=== PATIENT | female | born 1965 | race Caucasian/White ===

== ENCOUNTER 2022-03-12 22:32 | Emergency (ER) | payer OTHER ==
[2022-03-12 22:37] VITALS: RESP 18
[2022-03-12] MEDS ORDERED: CEPHALEXIN 500MG STARTER PACK 4 CAP BTL PO STA (23:06)
[2022-03-12] MEDS ORDERED: ACET/COD 300 MG/30 MG STARTER PACK 6 TAB BTL PO STA (23:06)
--- NOTE | 2022-03-12 23:08 | ED ---
General Adult HPI - General Chief complaint: Skin/Abscess/Foreign Body Stated complaint: Left arm swelling Time Seen by Provider: 03/12/22 22:42 Source: patient Mode of arrival: ambulatory Limitations: no limitations - History of Present Illness Initial comments: Dictation was produced using Rit[employer] dictation software. please excuse any grammatical, word or spelling errors. Chief Complaint: 56-year-old female presents emergency Department with left arm redness and pain History of Present Illness: Patient is a 56-year-old female she presents emergency Department with left elbow pain and redness. Patient states that 6 days prior to that she hit part of her forearm with an attachment to the vacuum. She didn't think much of it. Shortly after she started to have some swelling over the left forearm. She states that spent there for several days. She tried to come to the emergency department recently however did not want to wait she ended up left without being seen. States that the swelling is improved however does appear to be more red and just is painful. Denies any fever or constitutional symptoms. The ROS documented in this emergency department record has been reviewed and confirmed by me. Those systems with pertinent positive or negative responses have been documented in the HPI. All other systems are other negative and/or noncontributory. PHYSICAL EXAM: General Impression: Alert and oriented x3, not in acute distress HEENT: Normocephalic atraumatic, extra-ocular movements intact, pupils equal and reactive to light bilaterally, mucous membranes moist. Cardiovascular: Heart regular rate and rhythm Chest: Able to complete full sentences, no retractions, no tachypnea Abdomen: abdomen soft, non-tender, non-distended, no organomegaly Musculoskeletal: Pulses present and equal in all extremities, no peripheral edema Motor: no focal deficits noted Left upper extremity: There does appear to be some redness that is blanching there is palpatory tenderness, no puncture wounds, no drainage, clean dry and intact Neurological: CN II-XII grossly intact, no focal motor or sensory deficits noted Skin: Intact with no visualized rashes Psych: Normal affect and mood ED course: 56-year-old female presents emergency Department clinical presentation concerning for left upper extremity cellulitis. Point of care bedside ultrasound showed cobblestoning in the dermal layers. Vital signs upon arrival are within acceptable limits. Patient prescription for Keflex. She is given starter pack for Keflex and analgesics. Patient given referral to primary care doctor. - Related Data Previous Rx's Medication Instructions Recorded Ibuprofen [Motrin] 600 mg PO Q6HR PRN #20 tab 10/11/14 Cephalexin [Keflex] 500 mg PO Q6HR 5 Days #20 cap 03/12/22 Allergies Allergy/AdvReac Type Severity Reaction Status Date / Time No Known Allergies Allergy Verified 03/12/22 22:36 Review of Systems ROS Statement: Those systems with pertinent positive or pertinent negative responses have been documented in the HPI. ROS Other: All systems not noted in ROS Statement are negative. Past Medical History Past Medical History: Diabetes Mellitus, Hypertension History of Any Multi-Drug Resistant Organisms: None Reported Past Surgical History: No Surgical Hx Reported Additional Past Surgical History / Comment(s): manas do, Past Psychological History: Depression Smoking Status: Current every day smoker Past Alcohol Use History: None Reported Past Drug Use History: Marijuana General Exam Limitations: no limitations Course Vital Signs 03/12/22 22:34 Temperature 97.7 F Pulse Rate 87 Respiratory 18 Rate Blood Pressure 162/80 O2 Sat by Pulse 96 Oximetry Disposition Clinical Impression: Cellulitis Disposition: HOME SELF-CARE Condition: Good Instructions (If sedation given, give patient instructions): Cellulitis (ED) Prescriptions: Cephalexin [Keflex] 500 mg PO Q6HR 5 Days #20 cap Is patient prescribed a controlled substance at d/c from ED?: No Referrals: Primo Ballard MD [REFERRING] - 1-2 days Shorty Lewis MD [REFERRING] - 1-2 days Time of Disposition: 23:08
[2022-03-12 23:47] VITALS: BP 144/88; PULSE 75; TEMP 98.3
== END 2022-03-12 23:55 | disposition home or self-care (01) ==
LOC: EC 22:32
DX: L03.114 Cellulitis of left upper limb (principal); E11.9 Type 2 diabetes mellitus without complications; I10 Essential (primary) hypertension; F17.200 Nicotine dependence, unspecified, uncomplicated
CPT/HCPCS: 99283

== ENCOUNTER 2022-04-12 15:03 | Emergency (ER) | payer OTHER ==
[2022-04-12 15:39] VITALS: BP 131/81; PULSE 95; RESP 20; TEMP 98.6
[2022-04-12 17:39] LABS: Amorphous Sediment,Urine Rare /hpf; Appearance,Urine Cloudy (Clear); Bacteria,Urine Occasional /hpf; Bilirubin,Urine 1+ (Negative); Blood,Urine Moderate (Negative); Color,Urine Dark Yellow; Glucose,Urine (UA) 4+ (Negative); Hyaline Casts,Urine 5 /lpf (0-2); Ketones,Urine 1+ (Negative); Leukocyte Esterase,Urine Moderate (Negative); Mucus,Urine Many /hpf; Nitrite,Urine Negative (Negative); Protein,Urine 2+ (Negative); RBC,Urine 8 /hpf (0-5); Specific Gravity,Urine 1.031 (1.001-1.035); Squamous Epithelial Cell,Urine 16 /hpf (0-4); WBC,Urine 25 /hpf (0-5)
[2022-04-12] MEDS ORDERED: ACETAMINOPHEN TAB 500 MG TAB PO STA (19:30)
[2022-04-12] MEDS ORDERED: SULFAMETHOX-TMP 800-160MG 1 EACH TAB PO STA (19:30)
--- NOTE | 2022-04-12 19:32 | ED ---
Abdominal Pain HPI - General Chief Complaint: Abdominal Pain Stated Complaint: Abd pain Time Seen by Provider: 04/12/22 19:17 Source: patient, RN notes reviewed Mode of arrival: ambulatory Limitations: no limitations - History of Present Illness Initial Comments: This is [id number] female comes here complaining of right low back pain. Pain is aching and sometimes sharp in nature, exacerbated by movement, twisting, bending, lifting. Patient states she's been moving at home and believes she may have injured her back. However she states that she previously has had urinary tract infections of cellulitis. Patient denying any voiding irritation. Denies any fever or chills. No nausea or vomiting. No vaginal discharge, no hematuria. Pain does radiate into the right buttock but does not radiate elsewhere. Alleviated by rest. No headache, no fever or chills, no changes in vision or hearing, no sore throat or difficulty with speech, no neck pain, no chest pain or shortness of breath, no abdominal pain, no nausea or vomiting, no changes in urination or bowel movements, no numbness or tingling, no extremity pain, no skin rashes or lesions. Past medical, surgical, social, and family history reviewed. - Related Data Previous Rx's Medication Instructions Recorded Ibuprofen [Motrin] 600 mg PO Q6HR PRN #20 tab 10/11/14 Cephalexin [Keflex] 500 mg PO Q6HR 5 Days #20 cap 03/12/22 Acetaminophen Tab [Tylenol Tab] 500 mg PO Q6H PRN #24 tablet 04/12/22 Cyclobenzaprine [Flexeril] 10 mg PO TID PRN #20 tab 04/12/22 Ibuprofen [Motrin] 600 mg PO Q8HR PRN #30 tab 04/12/22 Sulfamethox-Tmp 800-160Mg [Bactrim 1 tab PO Q12HR #14 tab 04/12/22 DS 800-160 mg] Allergies Allergy/AdvReac Type Severity Reaction Status Date / Time No Known Allergies Allergy Verified 04/12/22 15:39 Review of Systems ROS Statement: Those systems with pertinent positive or pertinent negative responses have been documented in the HPI. ROS Other: All systems not noted in ROS Statement are negative. Past Medical History Past Medical History: Diabetes Mellitus, Hypertension History of Any Multi-Drug Resistant Organisms: None Reported Past Surgical History: No Surgical Hx Reported Additional Past Surgical History / Comment(s): manas do, Past Psychological History: Depression Smoking Status: Current every day smoker Past Alcohol Use History: None Reported Past Drug Use History: Marijuana General Exam - General Exam Comments Initial Comments: This is [id number] female comes here complaining of right low back pain. Pain is aching and sometimes sharp in nature, exacerbated by movement, twisting, bending, lifting. Patient states she's been moving at home and believes she may have injured her back. However she states that she previously has had urinary tract infections of cellulitis. Patient denying any voiding irritation. Denies any fever or chills. No nausea or vomiting. No vaginal discharge, no hematuria. Pain does radiate into the right buttock but does not radiate elsewhere. Alleviated by rest. No headache, no fever or chills, no changes in vision or hearing, no sore throat or difficulty with speech, no neck pain, no chest pain or shortness of breath, no abdominal pain, no nausea or vomiting, no changes in urination or bowel movements, no numbness or tingling, no extremity pain, no skin rashes or lesions. Past medical, surgical, social, and family history reviewed. Limitations: no limitations General appearance: alert, in no apparent distress Head exam: Present: atraumatic, normocephalic, normal inspection Eye exam: Present: normal appearance, PERRL, EOMI. Absent: scleral icterus, conjunctival injection, periorbital swelling ENT exam: Present: normal exam, mucous membranes moist Neck exam: Present: normal inspection, full ROM. Absent: tenderness, meningismus, lymphadenopathy Respiratory exam: Present: normal lung sounds bilaterally. Absent: respiratory distress, wheezes, rales, rhonchi, stridor Cardiovascular Exam: Present: regular rate, normal rhythm, normal heart sounds. Absent: systolic murmur, diastolic murmur, rubs, gallop, clicks GI/Abdominal exam: Present: soft, normal bowel sounds. Absent: distended, tenderness, guarding, rebound, rigid Extremities exam: Present: normal inspection, full ROM, normal capillary refill. Absent: tenderness, pedal edema, joint swelling, calf tenderness Back exam: Present: normal inspection, full ROM (Range of motion is full with reproducible pain in the right lumbar paraspinals), tenderness, paraspinal tenderness (Right lumbar). Absent: CVA tenderness (R), CVA tenderness (L), muscle spasm, vertebral tenderness, rash noted Neurological exam: Present: alert, oriented X3, CN II-XII intact, normal gait, reflexes normal. Absent: motor sensory deficit Psychiatric exam: Present: normal affect, normal mood Skin exam: Present: warm, dry, intact, normal color. Absent: rash Course Vital Signs 04/12/22 15:37 Temperature 98.6 F Pulse Rate 95 Respiratory 20 Rate Blood Pressure 131/81 O2 Sat by Pulse 99 Oximetry Medical Decision Making - Medical Decision Making I suspect the patient's back pain is due to musculoskeletal back pain is been moving at work. This is also reproducible with both movement and palpation in the right lumbar paraspinals. Patient's clinical picture does not fit pyelonephritis however the patient states that she previously had a urinary tract infection that started like this. Patient has no abdominal tenderness. No CVA tenderness. No fever or vomiting. I'm going to cover the patient with antibiotics as her urine was abnormal however contaminated. Told the patient to call back for urine culture results on Friday. We'll cover her with Bactrim DS until then. We'll treat for Mus[place] skeletal back pain otherwise. Patient no symptomology consistent with cauda equina syndrome. No red flags. No bowel or bladder problems otherwise. Patient was told to return to the ER for any signs or symptoms worsen. Told to return immediately if any other problems arise. All questions answered. Treatment plan discussed. Patient in agreement Every effort has been made to ensure accuracy of this dictation. However, due to the limitations of electronic medical records and dictation devices, errors in charting still occur. Sales Market Leader Dr. Yan - Lab Data Lab Results 04/12/22 Range/Units 17:17 Urine Color Dark Yellow Urine Appearance Cloudy H (Clear) Urine pH 6.0 (5.0-8.0) Ur Specific Lyle 1.031 (1.001-1.035) Urine Protein 2+ H (Negative) Urine Glucose (UA) 4+ H (Negative) Urine Ketones 1+ H (Negative) Urine Blood Moderate H (Negative) Urine Nitrite Negative (Negative) Urine Bilirubin 1+ H (Negative) Urine Urobilinogen 3.0 (<2.0) mg/dL Ur Leukocyte Esterase Moderate H (Negative) Urine RBC 8 H (0-5) /hpf Urine WBC 25 H (0-5) /hpf Ur Squamous Epith Cells 16 H (0-4) /hpf Amorphous Sediment Rare H (None) /hpf Urine Bacteria Occasional H (None) /hpf Hyaline Casts 5 H (0-2) /lpf Urine Mucus Many H (None) /hpf Disposition Clinical Impression: Urinary tract infection, Lumbar strain Disposition: HOME SELF-CARE Condition: Good Instructions (If sedation given, give patient instructions): Urinary Tract Infection in Women (ED), Low Back Strain (ED) Additional Instructions: Taking antibiotics as directed and recent urine culture is received, you can call back on Friday for the results. Follow-up with your regular physician as directed. Return to the ER immediately if any symptoms worsen, new symptoms arise, or any other problems develop. Limit lifting, bending, and twisting for the next 5-7 days. Prescriptions: Sulfamethox-Tmp 800-160Mg [Bactrim DS 800-160 mg] 1 tab PO Q12HR #14 tab Cyclobenzaprine [Flexeril] 10 mg PO TID PRN #20 tab PRN Reason: Spasms Ibuprofen [Motrin] 600 mg PO Q8HR PRN #30 tab PRN Reason: Pain Acetaminophen Tab [Tylenol Tab] 500 mg PO Q6H PRN #24 tablet PRN Reason: Pain Is patient prescribed a controlled substance at d/c from ED?: No Referrals: None,Stated [Primary Care Provider] - 1-2 days Time of Disposition: 19:32
== END 2022-04-12 19:40 | disposition home or self-care (01) ==
LOC: EC 15:03
DX: S39.012A Strain of muscle, fascia and tendon of lower back, initial encounter (principal); N39.0 Urinary tract infection, site not specified; E11.9 Type 2 diabetes mellitus without complications; I10 Essential (primary) hypertension; F17.200 Nicotine dependence, unspecified, uncomplicated; F12.90 Cannabis use, unspecified, uncomplicated; X58.XXXA Exposure to other specified factors, initial encounter
CPT/HCPCS: 81001; 87086; 99283

== ENCOUNTER 2023-03-03 12:56 | Inpatient (IN) | payer MEDICAID, OTHER ==
[2023-03-03] MEDS ORDERED: DIPH,PERTUS(ACELL)TETVAC-LF 0.5 ML VIAL IM ONE (13:09)
--- NOTE | 2023-03-03 13:11 | ED ---
General Adult HPI - General Chief complaint: Psychiatric Symptoms Stated complaint: suicidal/wrist injurys Time Seen by Provider: 03/03/23 13:01 Source: patient, RN notes reviewed Mode of arrival: ambulatory Limitations: no limitations - History of Present Illness Initial comments: Patient is a pleasant 57-year-old female presenting to the emergency Department with depression and suicidal thoughts. Patient did abrade her wrists bilaterally yesterday with a knife. Unclear last tetanus immunization. Patient does have history of depression and is not on any medications at this time. No homicidal thoughts. No alcohol or street drug use. No new physical complaints. - Related Data Home Medications Medication Instructions Recorded Confirmed DULoxetine HCL [Cymbalta] 30 mg PO BID 03/03/23 03/03/23 Famotidine [Pepcid] 20 mg PO BID 03/03/23 03/03/23 Folic Acid 1 mg PO DAILY 03/03/23 03/03/23 Linagliptin [Tradjenta] 5 mg PO DIRECTED 03/03/23 03/03/23 Nicotine 21Mg/24Hr Patch [Habitrol] 1 patch TRANSDERM DAILY 03/03/23 03/03/23 Thiamine [Vitamin B-1] 100 mg PO DAILY 03/03/23 03/03/23 glipiZIDE [Glucotrol] 5 mg PO AC-BRKFST 03/03/23 03/03/23 lisinopriL [Zestril] 10 mg PO DAILY 03/03/23 03/03/23 Allergies Allergy/AdvReac Type Severity Reaction Status Date / Time naproxen AdvReac Abdominal Verified 03/03/23 13:43 Pain Review of Systems ROS Statement: Those systems with pertinent positive or pertinent negative responses have been documented in the HPI. ROS Other: All systems not noted in ROS Statement are negative. Constitutional: Denies: fever Eyes: Denies: eye pain ENT: Denies: ear pain Cardiovascular: Denies: chest pain Gastrointestinal: Denies: abdominal pain Psychiatric: Reports: anxiety, depression, suicidal thoughts Past Medical History Past Medical History: Diabetes Mellitus, Hypertension History of Any Multi-Drug Resistant Organisms: None Reported Past Surgical History: No Surgical Hx Reported Additional Past Surgical History / Comment(s): mnaas do, Past Psychological History: Depression Smoking Status: Current every day smoker Past Alcohol Use History: None Reported Past Drug Use History: Marijuana General Exam Limitations: no limitations General appearance: alert, in no apparent distress Head exam: Present: normocephalic Eye exam: Present: normal appearance Neck exam: Present: normal inspection Respiratory exam: Present: normal lung sounds bilaterally Cardiovascular Exam: Present: regular rate, normal rhythm GI/Abdominal exam: Present: soft. Absent: tenderness Extremities exam: Present: other (Bilateral wrist abrasions) Neurological exam: Present: alert Psychiatric exam: Present: depressed, anxious Skin exam: Present: normal color Course Vital Signs 03/03/23 03/03/23 12:58 14:52 Temperature 97.8 F Pulse Rate 102 H 72 Respiratory 18 18 Rate Blood Pressure 191/105 155/88 O2 Sat by Pulse 99 98 Oximetry Medical Decision Making - Medical Decision Making Was pt. sent in by a medical professional or institution (, PA, HUMAN GEOGRAPHY INSTRUCTOR, urgent care, hospital, or long term...) When possible be specific @ -No Did you speak to anyone other than the patient for history (EMS, parent, family, police, friend...)? What history was obtained from this source @ -No Did you review nursing and triage notes (agree or disagree)? Why? @ -I reviewed and agree with nursing and triage notes Were old charts reviewed (outside hosp., previous admission, EMS record, old EKG, old radiological studies, urgent care reports/EKG's, long term records)? Report findings @ -No old charts were reviewed Differential Diagnosis (chest pain, altered mental status, abdominal pain women, abdominal pain men, vaginal bleeding, weakness, fever, dyspnea, syncope, headache, dizziness, GI bleed, back pain, seizure, CVA, palpatations, mental health, musculoskeletal)? @ -Differential Mental Health Depression, anxiety, bipolar, psychosis, schizophrenia, borderline personality, situational depression, adjustment disorder, behavioral disorder, brain tumor, malingering, substance abuse, encephalopathy, medication reaction, dementia, hypothyroidism, degenerative neurologic disorder, lupus.... This is not meant to be all-inclusive list EKG interpreted by me (3pts min.). @ -As above X-rays interpreted by me (1pt min.). @ -None done CT interpreted by me (1pt min.). @ -None done U/S interpreted by me (1pt. min.). @ -None done What testing was considered but not performed or refused? (CT, X-rays, U/S, l abs)? Why? @ -None What meds were considered but not given or refused? Why? @ -None Did you discuss the management of the patient with other professionals (professionals i.e. , PA, HUMAN GEOGRAPHY INSTRUCTOR, lab, RT, psych nurse, social work professor, theater usher, teacher, railroad police officer, dependency case manager)? Give summary @ -Case was discussed with psychiatric nurse and patient will be admitted for psychiatric care Was smoking cessation discussed for >3mins.? @ -No Was critical care preformed (if so, how long)? @ -No Were there social determinants of health that impacted care today? How? (Homelessness, low income, unemployed, alcoholism, drug addiction, transportation, low edu. Level, literacy, decrease access to med. care, assisted, rehab)? @ -No Was there de-escalation of care discussed even if they declined (Discuss DNR or withdrawal of care, Hospice)? DNR status @ -No What co-morbidities impacted this encounter? (DM, HTN, Smoking, COPD, CAD, Cancer, CVA, ARF, Chemo, Hep., AIDS, mental health diagnosis, sleep apnea, morbid obesity)? @ -None Was patient admitted / discharged? Hospital course, mention meds given and rou te, prescriptions, significant lab abnormalities, going to OR and other pertinent info. @ -Patient received Ativan. Repeat blood pressure improved. Patient will be admitted for psychiatric care. Undiagnosed new problem with uncertain prognosis? @ -No Drug Therapy requiring intensive monitoring for toxicity (Heparin, Nitro, Insulin, Cardizem)? @ -No Were any procedures done? @ -No Diagnosis/symptom? @ -Depression, suicidal ideation Acute, or Chronic, or Acute on Chronic? @ -Acute on chronic, acute Uncomplicated (without systemic symptoms) or Complicated (systemic symptoms)? @ -default Side effects of treatment? @ -No Exacerbation, Progression, or Severe Exacerbation? @ -No Poses a threat to life or bodily function? How? (Chest pain, [place], [place], pneumonia, PE, COPD, DKA, ARF, appy, cholecystitis, CVA, Diverticulitis, Homicidal, Suicidal, threat to staff... and all critical care pts) @ -Suicide poses a threat to life. - Lab Data Lab Results 03/03/23 Range/Units 14:51 POC Glucose (mg/dL) 277 H (70-110) mg/dL POC Glu Prospecting Driller Helper ID Maryam Flores Disposition Clinical Impression: Suicidal ideation, Depression Disposition: TRANSFER TO PSYCH HOSP/UNIT Is patient prescribed a controlled substance at d/c from ED?: No Referrals: None,Stated [Primary Care Provider] - 1-2 days Time of Disposition: 15:08
[2023-03-03] MEDS ORDERED: LORazepam 1 MG TAB PO STA (14:49)
[2023-03-03 14:52] LABS: Glucose,Whole Blood 277 mg/dL (70-110)
[2023-03-03] MEDS ORDERED: MAG HYDROX/AL HYDROX/SIMETH 30 ML CUP PO PRN (19:57)
[2023-03-03] MEDS ORDERED: MAGNESIUM HYDROXIDE 2,400 MG/30 ML CUP PO PRN (19:57)
[2023-03-03] MEDS ORDERED: ACETAMINOPHEN TAB 325 MG TAB PO PRN (19:57)
[2023-03-03] MEDS ORDERED: LORazepam 2 MG/ML INJ IM PRN (19:57)
[2023-03-03] MEDS: FAMOTIDINE 20 MG TAB PO SCH (21:06)
[2023-03-03] MEDS: LORazepam 1 MG TAB PO PRN (21:06)
[2023-03-03] MEDS: DULoxetine HCL 30 MG CAPSULE.DR PO SCH (21:06)
[2023-03-03 21:10] LABS: Amphetamine Screen,Urine Not Detected (NotDetected); Barbiturate Screen,Urine Not Detected (NotDetected); Benzodiazepines Screen,Urine Not Detected (NotDetected); Cocaine Screen,Urine Detected (NotDetected); Methadone Screen, Urine Not Detected (NotDetected); Opiate Screen,Urine Not Detected (NotDetected); Oxycodone Screen, Urine Not Detected (NotDetected); Phencyclidine Screen,Urine Not Detected (NotDetected); Tricyclic Antidepressant,Urine Not Detected (NotDetected); Urn Cannabinoid Scrn Detected (NotDetected)
[2023-03-04] MEDS: FOLIC ACID 1 MG TAB PO SCH (08:19)
[2023-03-04] MEDS: NICOTINE 21MG/24HR PATCH TRANSDERM SCH (08:19)
[2023-03-04] MEDS: THIAMINE 100 MG TAB PO SCH (08:19)
[2023-03-04] MEDS: FAMOTIDINE 20 MG TAB PO SCH ×2 (08:19→19:30)
[2023-03-04] MEDS: DULoxetine HCL 30 MG CAPSULE.DR PO SCH (08:19)
[2023-03-04] MEDS: lisinopriL 10 MG TAB PO SCH (08:19)
[2023-03-04] MEDS: glipiZIDE 5 MG TAB PO SCH (08:19)
[2023-03-04 08:20] LABS: Glucose,Whole Blood 242 mg/dL (70-110)
[2023-03-04 12:03] LABS: Basophils % (A) 0 %; Eosinophils # (A) 0.1 k/uL (0-0.7); Eosinophils % (A) 1 %; HCT 42.7 % (34.0-46.0); HGB 14.4 gm/dL (11.4-16.0); Lymphocytes # (A) 2.4 k/uL (1.0-4.8); Lymphocytes % (A) 30 %; MCHC 33.8 g/dL (31.0-37.0); MCV 88.7 fL (80.0-100.0); Mean Platelet Volume 6.8; Monocytes # (A) 0.3 k/uL (0-1.0); Monocytes % (A) 4 %; Neutrophils # (A) 5.1 k/uL (1.3-7.7); Neutrophils % (A) 64 %; Platelet Count 319 k/uL (150-450); RBC 4.82 m/uL (3.80-5.40)
[2023-03-04 12:14] LABS: ALT 21 U/L (4-34); AST 20 U/L (14-36); African American GFR (CKD) >90 (>60 ml/min/1.73 sqM); Albumin 4.1 g/dL (3.5-5.0); Alkaline Phosphatase 88 U/L (38-126); Anion Gap 3 mmol/L; Blood Urea Nitrogen 14 mg/dL (7-17); Calcium 9.7 mg/dL (8.4-10.2); Carbon Dioxide 35 mmol/L (22-30); Chloride 99 mmol/L (98-107); Glucose 165 mg/dL (74-99); Non-African American GFR(CKD) >90 (>60 ml/min/1.73 sqM); Potassium 3.8 mmol/L (3.5-5.1); Sodium 137 mmol/L (137-145); Total Bilirubin 0.9 mg/dL (0.2-1.3); Total Protein 7.6 g/dL (6.3-8.2)
[2023-03-04 13:01] LABS: Glucose,Whole Blood 158 mg/dL (70-110)
[2023-03-04] MEDS: LORazepam 1 MG TAB PO PRN ×2 (15:03→21:37)
[2023-03-04 16:52] LABS: LDL Cholesterol,Calculated 105.7 mg/dL (0.0-131.0)
[2023-03-04 17:52] LABS: Glucose,Whole Blood 169 mg/dL (70-110)
[2023-03-04] MEDS ORDERED: FLUoxetine HCL 10 MG CAP PO STA (19:22)
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
[2023-03-04 20:08] LABS: Glucose,Whole Blood 271 mg/dL (70-110)
[2023-03-04] MEDS ORDERED: traZODone HCL 50 MG TAB PO SCH (21:00)
--- NOTE | 2023-03-05 03:39 | P.CONS ---
History of Present Illness - Reason for Consult Consult date: 03/05/23 - History of Present Illness The patient is a 57-year-old female with a PMH of type II DM, hypertension who had presented to the emergency room with complaint of depression and suicidal ideation. The patient was admitted to the mental health unit where she was seen and evaluated accompanied by mental health unit staff. The patient reports that she has been suffering from depression with suicidal ideation "for a long time". She denied any physical complaints at the time of interview. She reports smoking less than one pack of cigarettes daily. Does report marijuana use. Denied alcohol use. Review of systems: Pertinent positives and negatives as discussed in HPI, a complete review of systems was performed and all other systems are negative. Physical examination: General: non toxic, no distress, appears older than stated age, obese Derm: no unusual rashes/lesions, no unusual ecchymoses, warm, dry Head: atraumatic, normocephalic, symmetric Eyes: EOMI, no lid lag, anicteric sclera ENT: Nose and ears atraumatic, no thrush, no pharyngeal erythema Neck: trachea midline, supple Mouth: no lip lesion, mucus membranes moist Cardiovascular: S1S2 reg, no murmur, no edema Lungs: CTA bilateral, no rhonchi, no rales , no accessory muscle use Abdominal: soft, nontender to palpation, no guarding Ext: no gross muscle atrophy, no contractures, Neuro: No gross focal neuro deficits noted Psych: Alert, oriented, appropriate affect Assessment: Chronic conditions: Type II DM, hypertension Depression and suicidal ideation Imaging: None performed Data Review: Reviewed with glucose 242, A1c 9.3 Plan: Continue with home medications: Glipizide 5 mg by mouth daily Insulin sliding scale and blood glucose monitoring Continue with home lisinopril dose Defer management of depression and suicidal ideation to the primary psychiatry service Thank you for allowing us to participate in the care of this patient. We will follow peripherally. Do not hesitate to contact us with questions. Someone can be reached from the [facility] hospitalist group at all hours of the day at [phone]. 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 Past Drug Use History: Marijuana Medications and Allergies Home Medications Medication Instructions Recorded Confirmed Type DULoxetine HCL [Cymbalta] 30 mg PO BID 03/03/23 03/03/23 History Famotidine [Pepcid] 20 mg PO BID 03/03/23 03/03/23 History Folic Acid 1 mg PO DAILY 03/03/23 03/03/23 History Linagliptin [Tradjenta] 5 mg PO DIRECTED 03/03/23 03/03/23 History Nicotine 21Mg/24Hr Patch [Habitrol] 1 patch TRANSDERM DAILY 03/03/23 03/03/23 History Thiamine [Vitamin B-1] 100 mg PO DAILY 03/03/23 03/03/23 History glipiZIDE [Glucotrol] 5 mg PO AC-BRKFST 03/03/23 03/03/23 History lisinopriL [Zestril] 10 mg PO DAILY 03/03/23 03/03/23 History Allergies Allergy/AdvReac Type Severity Reaction Status Date / Time naproxen AdvReac Abdominal Verified 03/03/23 13:43 Pain Physical Exam Vitals: Vital Signs Temp Pulse BP Pulse Ox 03/04/23 19:16 88 142/82 98 03/04/23 06:51 98.2 F 69 188/83 Results CBC & Chem 7: 03/04/23 11:39 03/04/23 11:39 Labs: Abnormal Lab Results - Last 24 Hours (Table) 03/04/23 03/04/23 03/04/23 Range/Units 08:17 11:39 11:39 Carbon Dioxide 35 H (22-30) mmol/L Glucose 165 H (74-99) mg/dL POC Glucose (mg/dL) 242 H (70-110) mg/dL Hemoglobin A1c 9.3 H (<=6.0) % 03/04/23 03/04/23 03/04/23 Range/Units 12:59 17:50 20:07 Carbon Dioxide (22-30) mmol/L Glucose (74-99) mg/dL POC Glucose (mg/dL) 158 H 169 H 271 H (70-110) mg/dL Hemoglobin A1c (<=6.0) %
[2023-03-05 08:15] LABS: Glucose,Whole Blood 198 mg/dL (70-110)
[2023-03-05] MEDS: NICOTINE 21MG/24HR PATCH TRANSDERM SCH (08:16)
[2023-03-05] MEDS: FOLIC ACID 1 MG TAB PO SCH (08:16)
[2023-03-05] MEDS: BACITRACIN OINT 1 EACH PACKET TOPICAL SCH ×2 (08:16→20:52)
[2023-03-05] MEDS: FLUoxetine HCL 20 MG CAP PO SCH (08:16)
[2023-03-05] MEDS: FAMOTIDINE 20 MG TAB PO SCH ×2 (08:17→20:47)
[2023-03-05] MEDS: glipiZIDE 5 MG TAB PO SCH (08:17)
[2023-03-05] MEDS: THIAMINE 100 MG TAB PO SCH (08:17)
[2023-03-05] MEDS: lisinopriL 10 MG TAB PO SCH (08:17)
[2023-03-05] MEDS: INSULIN ASPART (NovoLOG) 100 UNIT/ML VIAL SQ SCH ×4 (08:18→20:50)
[2023-03-05 12:49] LABS: Glucose,Whole Blood 267 mg/dL (70-110)
[2023-03-05] MEDS: LITHIUM CARBONATE 150 MG CAP PO SCH ×2 (14:59→20:47)
[2023-03-05] MEDS: LORazepam 1 MG TAB PO PRN ×2 (15:01→20:49)
[2023-03-05 17:36] LABS: Glucose,Whole Blood 126 mg/dL (70-110)
[2023-03-05 20:22] LABS: Glucose,Whole Blood 254 mg/dL (70-110)
[2023-03-05] MEDS: traZODone HCL 100 MG TAB PO SCH (20:47)
[2023-03-05] MEDS: INSULIN DETEMIR (LEVEMIR) 100 UNIT/ML SYR SQ SCH (20:50)
[2023-03-06 07:58] LABS: Glucose,Whole Blood 160 mg/dL (70-110)
[2023-03-06] MEDS: glipiZIDE 5 MG TAB PO SCH (07:58)
[2023-03-06] MEDS: NICOTINE 21MG/24HR PATCH TRANSDERM SCH (07:58)
[2023-03-06] MEDS: FLUoxetine HCL 20 MG CAP PO SCH (07:59)
[2023-03-06] MEDS: LITHIUM CARBONATE 150 MG CAP PO SCH ×2 (07:59→20:56)
[2023-03-06] MEDS: lisinopriL 10 MG TAB PO SCH (07:59)
[2023-03-06] MEDS: INSULIN ASPART (NovoLOG) 100 UNIT/ML VIAL SQ SCH ×4 (07:59→21:03)
[2023-03-06] MEDS: FOLIC ACID 1 MG TAB PO SCH (07:59)
[2023-03-06] MEDS: BACITRACIN OINT 1 EACH PACKET TOPICAL SCH ×2 (07:59→20:54)
[2023-03-06] MEDS: FAMOTIDINE 20 MG TAB PO SCH ×2 (07:59→20:51)
[2023-03-06] MEDS: THIAMINE 100 MG TAB PO SCH (07:59)
[2023-03-06] MEDS: LORazepam 1 MG TAB PO PRN ×3 (08:59→20:54)
--- NOTE | 2023-03-06 09:45 | P.PN ---
Subjective Progress Note Date: 03/06/23 Principal diagnosis: IMPRESSIONS: Major depressive disorder, recurrent, severe without psychotic features Cannabis use disorder Patient Name: Rochelle Chen Date of : 1965 Patient Status: Inpatient Subjective data: admits that she has been hospitalized for making a suicide attempt and that she was trying to cut her wrists Patient states that she had an issue with her roommate and that they were having trouble getting along She says that she had been prescribed medications by her PCP but has never had any formal psychiatric follow-up and treatment She says that she is truly with her mother was a travel registered nurse pacu for her until about 4 years ago until she She reports that she still feels quite depressed and sees no reason to continue going on She denies any actual suicidal plan at this time At this time patient denies any auditory or visual hallucinations. Patient denies any flight of ideas, racing thoughts and increased in goal directed behavior. Patient admits to using marijuana about 4-5 times per week; reports this helps her anxiety and sleep. She drinks alcohol a couple times a month, about 6-7 drinks. She denies any other illicit drug use. She is smoking 1 ppd, has tried to quit recently but was unsuccessful. UDS is positive for marijuana and cocaine. Patient admits she also did cocaine one time last Friday; reports this is the first time she has done it in years. MENTAL STATUS EXAM: General Appearance: Patient appears to be stated age. Patient was laying in bed when seen She is disheveled, has multiple tattoos on her arms, wrists are bandaged, wearing multiple single rings. Patient appears to have poor hygiene and grooming. Speech: Patient's speech is fluent and non-pressured; soft tone. Mood/Affect: Patient reports their mood is depressed, affect is congruent and constricted. Suicidality/Homicidality: Patient denies having any homicidal ideation intent or plan. Patient reports suicidal ideation still; she is s/p suicide attempt by cutting wrists. Perceptions: Patient denies any visual hallucinations and denies any auditory ortega llucinations. Though content/process: There is no evidence of any delusional thought content and thought process is linear and goal-directed. Memory and concentration: AOX3, grossly intact for the purposes of this session. Judgment and insight: poor, fair IMPRESSIONS: Major depressive disorder, recurrent, severe without psychotic features Rule out personality disorder with cluster B traits Cannabis use disorder Cocaine use disorder unspecified PLAN: Agree with treatment plan by : -Patient is admitted under voluntary status to MHU for stabilization of psychiatric symptoms and safety. Patient has signed adult voluntary form and medication consent and is placed in patient's chart. -Medications: Discontinue Cymbalta due to elevated blood pressure. Start Trazodone 50 mg QHS for sleep Start Prozac 10 mg x 1 today, and increase to 20 mg daily starting tomorrow morning for depression/anxiety. -Ativan and Haldol PRN for agitation/aggression -Discussed abstaining from mood altering substances, effects on her health. -Patient was informed of the risks, benefits and side effects of the medication and patient verbally consented to taking the medications. Patient signed med consent form and was placed in chart. -Internal Medicine consult to perform medical evaluation and physical. -NRT - nicotine patch -SW on board for discharge planning. Encourage patient to participate in groups to work on coping skills. Talha Eid M.D. Objective - Vital Signs Vital signs: Vital Signs Temp 97.6 F 03/06/23 08:00 Pulse 86 03/06/23 08:00 Resp 20 03/06/23 08:00 BP 123/74 03/06/23 08:00 Pulse Ox 98 03/04/23 19:16 FiO2 Intake & Output 03/05/23 03/06/23 03/06/23 18:59 06:59 18:59 Weight 89.993 kg - Labs CBC & Chem 7: 03/04/23 11:39 03/04/23 11:39 Labs: Abnormal Lab Results - Last 24 Hours (Table) 03/05/23 03/05/23 03/05/23 Range/Units 12:46 17:33 20:20 POC Glucose (mg/dL) 267 H 126 H 254 H (70-110) mg/dL 03/06/23 Range/Units 07:57 POC Glucose (mg/dL) 160 H (70-110) mg/dL
[2023-03-06 12:45] LABS: Glucose,Whole Blood 163 mg/dL (70-110)
[2023-03-06 17:43] LABS: Glucose,Whole Blood 147 mg/dL (70-110)
[2023-03-06] MEDS: traZODone HCL 100 MG TAB PO SCH (20:51)
[2023-03-06] MEDS: INSULIN DETEMIR (LEVEMIR) 100 UNIT/ML SYR SQ SCH (21:02)
[2023-03-06 21:12] LABS: Glucose,Whole Blood 217 mg/dL (70-110)
[2023-03-07 08:16] LABS: Glucose,Whole Blood 217 mg/dL (70-110)
[2023-03-07] MEDS: INSULIN ASPART (NovoLOG) 100 UNIT/ML VIAL SQ SCH ×4 (08:52→20:00)
[2023-03-07] MEDS: THIAMINE 100 MG TAB PO SCH (08:52)
[2023-03-07] MEDS: LITHIUM CARBONATE 150 MG CAP PO SCH ×2 (08:52→20:58)
[2023-03-07] MEDS: FOLIC ACID 1 MG TAB PO SCH (08:52)
[2023-03-07] MEDS: lisinopriL 10 MG TAB PO SCH (08:52)
[2023-03-07] MEDS: BACITRACIN OINT 1 EACH PACKET TOPICAL SCH ×2 (08:52→20:59)
[2023-03-07] MEDS: FAMOTIDINE 20 MG TAB PO SCH ×2 (08:52→20:58)
[2023-03-07] MEDS: FLUoxetine HCL 20 MG CAP PO SCH (08:52)
[2023-03-07] MEDS: glipiZIDE 5 MG TAB PO SCH (08:53)
[2023-03-07] MEDS: LORazepam 1 MG TAB PO PRN ×2 (08:56→16:16)
[2023-03-07] MEDS: NICOTINE 21MG/24HR PATCH TRANSDERM SCH (08:59)
[2023-03-07] MEDS ORDERED: FLUoxetine HCL 20 MG CAP PO STA (11:14)
--- NOTE | 2023-03-07 11:16 | P.PN ---
Progress Note - Text Progress Note Date: 03/05/23 Interval History: Patient was seen [wandering the hallways] and was directable and agreeable to speak with headline writer in the office. []. At this time patient denies any suicidal or homical ideations, intent or plan. Patient denies any auditory, visual hallucinations and denies any paranoia or delusions. Patient denies any side effects from the medications and has been compliant with meds. Mental Status Exam: General Appearance: Patient appears to be stated age. She is disheveled, has multiple tattoos on her arms, wrists are bandaged, wearing multiple single rings. Patient appears to have poor hygiene and grooming. Behavior: Patient is seated without any agitated behavior. Speech: Patient's speech is fluent and non-pressured; soft tone. Mood/Affect: Patient reports their mood is depressed, affect is congruent and constricted. Suicidality/Homicidality: Patient denies having any homicidal ideation intent or plan. Patient reports suicidal ideation still; she is s/p suicide attempt by cutting wrists. Perceptions: Patient denies any visual hallucinations and denies any auditory hallucinations. Though content/process: There is no evidence of any delusional thought content and thought process is linear and goal-directed. Memory and concentration: AOX3, grossly intact for the purposes of this session Judgment and insight: poor, fair IMPRESSIONS: Major depressive disorder, recurrent, severe without psychotic features Cannabis use disorder PLAN: -Patient is admitted under voluntary status to MHU for stabilization of psychiatric symptoms and safety. Patient has signed adult voluntary form and medication consent and is placed in patient's chart. -Medications: Discontinue Cymbalta due to elevated blood pressure. Trazodone 50 mg QHS for sleep Start Prozac 10 mg x 1 today, and increase to 20 mg daily starting tomorrow morning for depression/anxiety. -Ativan and Haldol PRN for agitation/aggression -NRT - nicotine patch -SW on board for discharge planning. Encourage patient to participate in groups to work on coping skills.
--- NOTE | 2023-03-07 11:20 | P.PN ---
Progress Note - Text Progress Note Date: 03/07/23 Interval History: Patient was seen today in her room and was agreeable to speak to typewriter repairer in her room today. She states that she has a chronic history of migraines and has been aggravated by the bright lights. She states that she has been preferring to stay in her room. Claims she has been sleeping on and off at nighttime. She claims that she is tolerating the Prozac well and wants the medication increased. She states that she continues to have suicidal thoughts of wanting to be with her mother. Continues to have a depressed affect and fairly concrete. She states that her appetite is fair at this time. At this time patient denies any homical ideations, intent or plan. Patient denies any auditory, visual hallucinations and denies any paranoia or delusions. Patient denies any side effects from the medications and has been compliant with meds. Mental Status Exam: General Appearance: Patient appears to be stated age. She is disheveled, has multiple tattoos on her arms, wrists are bandaged, wearing multiple single rings. Patient appears to have poor hygiene and grooming. Behavior: Patient is experiencing in her bed, appears depressed. Speech: Patient's speech is fluent and non-pressured Mood/Affect: Patient reports their mood is depressed, affect is congruent and constricted. Suicidality/Homicidality: Patient denies having any homicidal ideation intent or plan. Patient continues to report suicidal thoughts, no intent or plan. Perceptions: Patient denies any visual hallucinations and denies any auditory hallucinations. Though content/process: There is no evidence of any delusional thought content and thought process is linear and goal-directed. [place]. Focused on headache. Memory and concentration: AOX3, grossly intact for the purposes of this session Judgment and insight: Improving mildly. IMPRESSIONS: Major depressive disorder, recurrent, severe without psychotic features Cannabis use disorder PLAN: -Patient is admitted under voluntary status to MHU for stabilization of psychiatric symptoms and safety. Patient has signed adult voluntary form and medication consent and is placed in patient's chart. -Medications: Increase Trazodone 100 mg QHS for sleep/mood, increase Prozac 40 mg, and eval for increase over the weekend as tolerated for depression/anxiety. continue with lithium 150 mg bid for mood stabilization/SI. -Ativan and Haldol PRN for agitation/aggression -NRT - nicotine patch -SW on board for discharge planning. Encourage patient to participate in groups to work on coping skills.
[2023-03-07 12:54] LABS: Glucose,Whole Blood 99 mg/dL (70-110)
[2023-03-07] MEDS: ACETAMINOPHEN TAB 500 MG TAB PO PRN (14:10)
[2023-03-07 17:54] LABS: Glucose,Whole Blood 112 mg/dL (70-110)
[2023-03-07 19:49] LABS: Glucose,Whole Blood 212 mg/dL (70-110)
[2023-03-07] MEDS: traZODone HCL 100 MG TAB PO SCH (20:58)
[2023-03-07] MEDS: INSULIN DETEMIR (LEVEMIR) 100 UNIT/ML SYR SQ SCH (20:58)
[2023-03-08 08:14] LABS: Glucose,Whole Blood 145 mg/dL (70-110)
[2023-03-08] MEDS: INSULIN ASPART (NovoLOG) 100 UNIT/ML VIAL SQ SCH ×4 (08:25→20:07)
[2023-03-08] MEDS: FAMOTIDINE 20 MG TAB PO SCH ×2 (08:51→20:08)
[2023-03-08] MEDS: THIAMINE 100 MG TAB PO SCH (08:51)
[2023-03-08] MEDS: lisinopriL 10 MG TAB PO SCH (08:51)
[2023-03-08] MEDS: FOLIC ACID 1 MG TAB PO SCH (08:51)
[2023-03-08] MEDS: glipiZIDE 5 MG TAB PO SCH (08:51)
[2023-03-08] MEDS: LITHIUM CARBONATE 150 MG CAP PO SCH ×2 (08:51→20:08)
[2023-03-08] MEDS: BACITRACIN OINT 1 EACH PACKET TOPICAL SCH ×2 (08:52→20:09)
[2023-03-08] MEDS: FLUoxetine HCL 20 MG CAP PO SCH (08:52)
[2023-03-08] MEDS: LORazepam 1 MG TAB PO PRN ×2 (08:54→17:08)
[2023-03-08] MEDS: NICOTINE 21MG/24HR PATCH TRANSDERM SCH (09:20)
--- NOTE | 2023-03-08 10:16 | P.PN ---
Subjective Progress Note Date: 03/08/23 Principal diagnosis: IMPRESSIONS: Major depressive disorder, recurrent, severe without psychotic features Cannabis use disorder Patient Name: Rochlele Chen Date of : 1965 Patient Status: Inpatient Date seen 03/07/23 Subjective data: The patient reports that she just wants to be with her mom She states that she has talked to God and that she has been guaranteed that she'll be reunited I asked if her mom would want that for her, patient reports that she probably will not but that is what she wants She states that she does not see any reason to continue and wants to be reunited with her mother She did not express any suicidal plans . MENTAL STATUS EXAM: General Appearance: Patient appears to be stated age. Patient was seen while walking down the hallway She is disheveled, has multiple tattoos on her arms, patient has a shirt on from [employer] girlfriend logo on the front wrists are bandaged, wearing multiple single rings. Patient appears to have poor hygiene and grooming. Speech: Patient's speech is fluent and non-pressured; soft tone. Mood/Affect: Patient reports their mood is depressed, affect is congruent and constricted. Suicidality/Homicidality: Patient denies having any homicidal ideation intent or plan. Patient reports suicidal ideation still; she is s/p suicide attempt by cutting wrists. Perceptions: Patient denies any visual hallucinations and denies any auditory hallucinations. Though content/process: There is no evidence of any delusional thought content and thought process is linear and goal-directed. Memory and concentration: AOX3, grossly intact for the purposes of this session. Judgment and insight: poor, fair IMPRESSIONS: Major depressive disorder, recurrent, severe without psychotic features Rule out personality disorder with cluster B traits Cannabis use disorder Cocaine use disorder unspecified PLAN: Agree with treatment plan by : -Patient is admitted under voluntary status to [facility] for stabilization of psychiatric symptoms and safety. Patient has signed adult voluntary form and medication consent and is placed in patient's chart. -Medications: Discontinue Cymbalta due to elevated blood pressure. Start Trazodone 50 mg QHS for sleep Start Prozac 10 mg x 1 today, and increase to 20 mg daily starting tomorrow morning for depression/anxiety. -Ativan and Haldol PRN for agitation/aggression -Discussed abstaining from mood altering substances, effects on her health. -Patient was informed of the risks, benefits and side effects of the medication and patient verbally consented to taking the medications. Patient signed med consent form and was placed in chart. -Internal Medicine consult to perform medical evaluation and physical. -NRT - nicotine patch -SW on board for discharge planning. Encourage patient to participate in groups to work on coping skills. Continue supportive care and redirection May benefit from pastoral services? Talha Eid M.D. Objective - Vital Signs Vital signs: Vital Signs Temp 97.9 F 03/07/23 06:30 Pulse 71 03/07/23 06:30 Resp 20 03/06/23 08:00 BP 151/84 03/07/23 06:30 Pulse Ox 98 03/04/23 19:16 FiO2 - Labs CBC & Chem 7: 03/04/23 11:39 03/04/23 11:39 Labs: Abnormal Lab Results - Last 24 Hours (Table) 03/07/23 03/07/23 03/08/23 Range/Units 17:53 19:47 08:13 POC Glucose (mg/dL) 112 H 212 H 145 H (70-110) mg/dL
[2023-03-08 12:40] LABS: Glucose,Whole Blood 142 mg/dL (70-110)
[2023-03-08] MEDS: ACETAMINOPHEN TAB 500 MG TAB PO PRN (16:20)
[2023-03-08 17:39] LABS: Glucose,Whole Blood 153 mg/dL (70-110)
[2023-03-08 20:02] LABS: Glucose,Whole Blood 188 mg/dL (70-110)
[2023-03-08] MEDS: INSULIN DETEMIR (LEVEMIR) 100 UNIT/ML SYR SQ SCH (20:08)
[2023-03-08] MEDS: traZODone HCL 100 MG TAB PO SCH (20:08)
[2023-03-09] MEDS: LORazepam 1 MG TAB PO PRN ×2 (02:27→14:39)
[2023-03-09 07:48] LABS: Glucose,Whole Blood 184 mg/dL (70-110)
[2023-03-09] MEDS: NICOTINE 21MG/24HR PATCH TRANSDERM SCH (08:35)
[2023-03-09] MEDS: INSULIN ASPART (NovoLOG) 100 UNIT/ML VIAL SQ SCH ×4 (08:35→19:59)
[2023-03-09] MEDS: BACITRACIN OINT 1 EACH PACKET TOPICAL SCH ×2 (08:36→21:07)
[2023-03-09] MEDS: lisinopriL 10 MG TAB PO SCH (08:36)
[2023-03-09] MEDS: LITHIUM CARBONATE 150 MG CAP PO SCH ×2 (08:36→20:44)
[2023-03-09] MEDS: FOLIC ACID 1 MG TAB PO SCH (08:37)
[2023-03-09] MEDS: THIAMINE 100 MG TAB PO SCH (08:37)
[2023-03-09] MEDS: FAMOTIDINE 20 MG TAB PO SCH ×2 (08:37→20:44)
[2023-03-09] MEDS: glipiZIDE 5 MG TAB PO SCH (08:37)
[2023-03-09] MEDS: FLUoxetine HCL 20 MG CAP PO SCH (08:37)
--- NOTE | 2023-03-09 09:23 | P.PN ---
Subjective Progress Note Date: 03/09/23 Principal diagnosis: IMPRESSIONS: Major depressive disorder, recurrent, severe without psychotic features Cannabis use disorder Patient Name: Rochelle Chen Date of : 1965 Patient Status: Inpatient Date seen Subjective data: The patient reports that she had a rough day yesterday and that she continues to be preoccupied with wanting to be with her mother She says that she is also been thinking about her children and grandchildren and the problems that she will create and has started to have some doubts When asked if she would be willing to see a pastoral care patient reports that she might do that Nursing staff however reports that we do not have the pastoral care services at this time Patient is free to contact her own pasture if she wants to do so Patient was laying in bed at this time appears to be in no acute distress Patient stated that her sleep remains somewhat erratic in that she is open to taking the trazodone at a higher dose MENTAL STATUS EXAM: General Appearance: Patient appears to be stated age. Patient was seen while walking down the hallway She is disheveled, has multiple tattoos on her arms, patient has a shirt on from [employer] girlfriend logo on the front wrists are bandaged, wearing multiple single rings. Patient appears to have poor hygiene and grooming. Speech: Patient's speech is fluent and non-pressured; soft tone. Mood/Affect: Patient reports their mood is depressed, affect is congruent and constricted. Suicidality/Homicidality: Patient denies having any homicidal ideation intent or plan. Patient reports suicidal ideation still; she is s/p suicide attempt by cutting wrists. Perceptions: Patient denies any visual hallucinations and denies any auditory hallucinations. Though content/process: There is no evidence of any delusional thought content and thought process is linear and goal-directed. Memory and concentration: AOX3, grossly intact for the purposes of this session. Judgment and insight: poor, fair IMPRESSIONS: Major depressive disorder, recurrent, severe without psychotic features Rule out personality disorder with cluster B traits Cannabis use disorder Cocaine use disorder unspecified PLAN: Agree with treatment plan by : -Patient is admitted under voluntary status to [facility] for stabilization of p sychiatric symptoms and safety. Patient has signed adult voluntary form and medication consent and is placed in patient's chart. -Medications: Discontinue Cymbalta due to elevated blood pressure. Start Trazodone 50 mg QHS for sleep Start Prozac 10 mg x 1 today, and increase to 20 mg daily starting tomorrow morning for depression/anxiety. -Ativan and Haldol PRN for agitation/aggression -Discussed abstaining from mood altering substances, effects on her health. -Patient was informed of the risks, benefits and side effects of the medication and patient verbally consented to taking the medications. Patient signed med consent form and was placed in chart. -Internal Medicine consult to perform medical evaluation and physical. -NRT - nicotine patch -SW on board for discharge planning. Encourage patient to participate in groups to work on coping skills. Continue supportive care and redirection May benefit from pastoral services? Talha Eid M.D. Objective - Vital Signs Vital signs: Vital Signs Temp 96.1 F L 03/09/23 07:00 Pulse 63 03/09/23 07:00 Resp 16 03/09/23 07:00 BP 158/72 03/09/23 07:00 Pulse Ox 97 03/09/23 07:00 FiO2 - Labs CBC & Chem 7: 03/04/23 11:39 03/04/23 11:39 Labs: Abnormal Lab Results - Last 24 Hours (Table) 03/08/23 03/08/23 03/08/23 Range/Units 12:39 17:38 20:01 POC Glucose (mg/dL) 142 H 153 H 188 H (70-110) mg/dL 03/09/23 Range/Units 07:47 POC Glucose (mg/dL) 184 H (70-110) mg/dL
[2023-03-09 12:31] LABS: Glucose,Whole Blood 158 mg/dL (70-110)
[2023-03-09 17:33] LABS: Glucose,Whole Blood 115 mg/dL (70-110)
[2023-03-09 19:50] LABS: Glucose,Whole Blood 256 mg/dL (70-110)
[2023-03-09] MEDS: INSULIN DETEMIR (LEVEMIR) 100 UNIT/ML SYR SQ SCH (20:44)
[2023-03-09] MEDS ORDERED: traZODone HCL 100 MG TAB PO SCH (21:00)
[2023-03-09] MEDS: ACETAMINOPHEN TAB 500 MG TAB PO PRN (23:11)
[2023-03-10 07:47] LABS: Glucose,Whole Blood 157 mg/dL (70-110)
[2023-03-10] MEDS: INSULIN ASPART (NovoLOG) 100 UNIT/ML VIAL SQ SCH ×4 (08:27→21:03)
[2023-03-10] MEDS: BACITRACIN OINT 1 EACH PACKET TOPICAL SCH ×2 (08:28→21:03)
[2023-03-10] MEDS: FAMOTIDINE 20 MG TAB PO SCH ×2 (08:28→21:03)
[2023-03-10] MEDS: NICOTINE 21MG/24HR PATCH TRANSDERM SCH (08:28)
[2023-03-10] MEDS: glipiZIDE 5 MG TAB PO SCH (08:28)
[2023-03-10] MEDS: LITHIUM CARBONATE 150 MG CAP PO SCH (08:29)
[2023-03-10] MEDS: FLUoxetine HCL 20 MG CAP PO SCH (08:29)
[2023-03-10] MEDS: FOLIC ACID 1 MG TAB PO SCH (08:29)
[2023-03-10] MEDS: lisinopriL 10 MG TAB PO SCH (08:29)
[2023-03-10] MEDS: THIAMINE 100 MG TAB PO SCH (08:29)
[2023-03-10] MEDS: LORazepam 1 MG TAB PO PRN ×2 (08:34→19:10)
--- NOTE | 2023-03-10 11:42 | P.PN ---
Progress Note - Text Progress Note Date: 03/10/23 Interval History: Patient was seen today in her room and was agreeable to speak to screen writer in the office today. patient states that she is still "about the same" and continues to endorse depression and suicidal thoughts, no plan. 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 She states that she continues to want to "be with my mom" and states that she misses her dog. She claims that she did not have a good intera ction with the covering physician over the weekend. She states that she does not want to feel like this and continues to feel hopeless. We spoke about changing her medications which she is okay with trying. States that she had a difficult time sleeping last night with the trazodone and wants also had this replaced. She states that her appetite is fair at this time. At this time patient denies any homical ideations, intent or plan. Patient denies any auditory, visual hallucinations and denies any paranoia or delusions. Patient denies any side effects from the medications and has been compliant with meds. Mental Status Exam: General Appearance: Patient appears to be stated age. She is disheveled, has multiple tattoos on her arms, wrists are bandaged, wearing multiple single rings. Patient appears to have improving hygiene and grooming. Behavior: Patient is experiencing in her bed, appears depressed, improving mildly Speech: Patient's speech is fluent and non-pressured Mood/Affect: Patient reports their mood is depressed, affect is congruent and constricted. Suicidality/Homicidality: Patient denies having any homicidal ideation intent or plan. Patient continues to report suicidal thoughts, no intent or plan. Perceptions: Patient denies any visual hallucinations and denies any auditory hallucinations. Though content/process: There is no evidence of any delusional thought content and thought process is linear and goal-directed. [place]. Memory and concentration: AOX3, grossly intact for the purposes of this session Judgment and insight: Improving mildly. IMPRESSIONS: Major depressive disorder, recurrent, severe without psychotic features Cannabis use disorder PLAN: -Patient is admitted under voluntary status to [facility] for stabilization of psychiatric symptoms and safety. Patient has signed adult voluntary form and medication consent and is placed in patient's chart. -Medications: d/c Trazodone replace with doxepin 10 mg qhs for insomnia, discontinue Prozac replace with effexor xr 37.5 mg, increase lithium 300 mg bid for mood stabilization/SI. -Ativan and Haldol PRN for agitation/aggression -NRT - nicotine patch -SW on board for discharge planning. Encourage patient to participate in groups to work on coping skills.
[2023-03-10] MEDS: VENLAFAXINE HCL ER 37.5 MG CAP PO SCH (12:28)
[2023-03-10 12:46] LABS: Glucose,Whole Blood 101 mg/dL (70-110)
[2023-03-10] MEDS: ACETAMINOPHEN TAB 500 MG TAB PO PRN ×2 (13:48→21:05)
[2023-03-10 17:59] LABS: Glucose,Whole Blood 154 mg/dL (70-110)
[2023-03-10 19:56] LABS: Glucose,Whole Blood 168 mg/dL (70-110)
[2023-03-10] MEDS ORDERED: ARIPiprazole 2 MG TAB PO SCH (21:00)
[2023-03-10] MEDS: LITHIUM CARBONATE 300 MG CAP PO SCH (21:03)
[2023-03-10] MEDS: INSULIN DETEMIR (LEVEMIR) 100 UNIT/ML SYR SQ SCH (21:03)
[2023-03-10] MEDS: DOXEPIN 10 MG CAP PO SCH (21:03)
[2023-03-11 07:53] LABS: Glucose,Whole Blood 112 mg/dL (70-110)
[2023-03-11] MEDS: INSULIN ASPART (NovoLOG) 100 UNIT/ML VIAL SQ SCH ×4 (07:54→20:10)
[2023-03-11] MEDS: LITHIUM CARBONATE 300 MG CAP PO SCH (08:41)
[2023-03-11] MEDS: FOLIC ACID 1 MG TAB PO SCH (08:41)
[2023-03-11] MEDS: lisinopriL 10 MG TAB PO SCH (08:41)
[2023-03-11] MEDS: THIAMINE 100 MG TAB PO SCH (08:41)
[2023-03-11] MEDS: NICOTINE 21MG/24HR PATCH TRANSDERM SCH (08:41)
[2023-03-11] MEDS: VENLAFAXINE HCL ER 37.5 MG CAP PO SCH (08:41)
[2023-03-11] MEDS: glipiZIDE 5 MG TAB PO SCH (08:41)
[2023-03-11] MEDS: FAMOTIDINE 20 MG TAB PO SCH ×2 (08:41→20:52)
[2023-03-11] MEDS: LORazepam 1 MG TAB PO PRN ×2 (10:30→20:54)
[2023-03-11 11:32] VITALS: BMI 33.8
[2023-03-11 13:06] LABS: Glucose,Whole Blood 83 mg/dL (70-110)
[2023-03-11] MEDS: BACITRACIN OINT 1 EACH PACKET TOPICAL SCH ×2 (13:09→20:52)
--- NOTE | 2023-03-11 14:02 | P.PN ---
Progress Note - Text Progress Note Date: 03/11/23 Interval History: Patient was seen today wandering the hallways sports writer in the office today. nasim ent states that she is still feeling fairly depressed. She was fairly somatic today complaining of possible neuropathic pain in her arm. She claims that she used to be on Neurontin. She states that she also has been having fairly dry eyes. He spoke about different treatment options. She claims that she slept fairly well with the doxepin last night. She states that it was difficult for her to wake up this morning. She claims that she is having a tremor when she is trying to write things on paper however does not know which medication may be causing it and states it started yesterday. She claims that she continues to feel hopeless continues have suicidal thoughts however no plan or intent. Has been trying to go to groups. She states that her appetite is fair at this time. At this time patient denies any homical ideations, intent or plan. Patient denies any auditory, visual hallucinations and denies any paranoia or delusions. Patient denies any side effects from the medications and has been compliant with meds. Mental Status Exam: General Appearance: Patient appears to be stated age. She is disheveled, has multiple tattoos on her arms, wrists are bandaged, wearing multiple single rings. Patient appears to have improving hygiene and grooming. Behavior: Patient is sitting in chair, no agitation, appears less depressed, improving mildly Speech: Patient's speech is fluent and non-pressured Mood/Affect: Patient reports their mood is depressed, affect is congruent and improving mildly Suicidality/Homicidality: Patient denies having any homicidal ideation intent or plan. Patient continues to report suicidal thoughts, no intent or plan. Perceptions: Patient denies any visual hallucinations and denies any auditory hallucinations. Though content/process: There is no evidence of any delusional thought content and thought process is linear and goal-directed. [place]. Fairly somatic today. Memory and concentration: AOX3, grossly intact for the purposes of this session Judgment and insight: Improving mildly. IMPRESSIONS: Major depressive disorder, recurrent, severe without psychotic features Cannabis use disorder PLAN: -Patient is admitted under voluntary status to [facility] for stabilization of psychiatric symptoms and safety. Patient has signed adult voluntary form and medication consent and is placed in patient's chart. -Medications: continue with doxepin 10 mg qhs for insomnia, increase effexor xr 75 mg, change to lithobid 450 mg bid for mood stabilization/SI. patient claims that she is having fine tremors, will consider either culprit of effexor or lithium? -Ativan and Haldol PRN for agitation/aggression -NRT - nicotine patch -SW on board for discharge planning. Encourage patient to participate in groups to work on coping skills.
[2023-03-11] MEDS: LITHIUM CARBONATE ER 450 MG TABLET.ER PO SCH (14:38)
[2023-03-11 18:02] LABS: Glucose,Whole Blood 106 mg/dL (70-110)
[2023-03-11 19:57] LABS: Glucose,Whole Blood 240 mg/dL (70-110)
[2023-03-11] MEDS: INSULIN DETEMIR (LEVEMIR) 100 UNIT/ML SYR SQ SCH (20:52)
[2023-03-11] MEDS: DOXEPIN 10 MG CAP PO SCH (20:52)
[2023-03-11] MEDS: ARTIFICIAL TEARS-HYPROMELLOSE DROPS 15 ML BTL BOTH EYES PRN (20:53)
[2023-03-12 07:52] LABS: Glucose,Whole Blood 110 mg/dL (70-110)
[2023-03-12] MEDS: INSULIN ASPART (NovoLOG) 100 UNIT/ML VIAL SQ SCH ×4 (07:53→20:59)
[2023-03-12] MEDS: LITHIUM CARBONATE ER 450 MG TABLET.ER PO SCH ×2 (07:54→20:58)
[2023-03-12] MEDS: NICOTINE 21MG/24HR PATCH TRANSDERM SCH (07:54)
[2023-03-12] MEDS: lisinopriL 10 MG TAB PO SCH (07:54)
[2023-03-12] MEDS: glipiZIDE 5 MG TAB PO SCH (07:55)
[2023-03-12] MEDS: VENLAFAXINE HCL ER 75 MG CAP PO SCH (07:55)
[2023-03-12] MEDS: THIAMINE 100 MG TAB PO SCH (07:55)
[2023-03-12] MEDS: FOLIC ACID 1 MG TAB PO SCH (07:55)
[2023-03-12] MEDS: FAMOTIDINE 20 MG TAB PO SCH ×2 (07:55→20:59)
[2023-03-12] MEDS: ARTIFICIAL TEARS-HYPROMELLOSE DROPS 15 ML BTL BOTH EYES PRN ×2 (10:44→18:43)
[2023-03-12] MEDS: BACITRACIN OINT 1 EACH PACKET TOPICAL SCH ×2 (11:02→20:58)
[2023-03-12 12:53] LABS: Glucose,Whole Blood 96 mg/dL (70-110)
--- NOTE | 2023-03-12 14:54 | P.PN ---
Progress Note - Text Progress Note Date: 03/12/23 Interval History: Patient was seen today laying in the bed and was agreeable to speak to staff writer. She continues to state that she is not doing well today, continues to endorse depression and some anxiety. States that she has been having back problems's wall management was on Flexeril before and wanted to be restarted on it. She claims that she is not tolerating the doxepin well and states that she did not sleep well on it last night. She claims that the trazodone did work better for her in the 150 mg. States that she is still feeling like "I don't want to do anything" she is less focused today on suicidal thoughts however continues to endorse hopelessness and not wanting to be here. Claims that she is trying to go to some groups, was not able to make the morning group today. States her appetite is fair at this time. At this time patient denies any homical ideations, intent or plan. Patient denies any auditory, visual hallucinations and denies any paranoia or delusions. Patient denies any side effects from the medications and has been compliant with meds. Mental Status Exam: General Appearance: Patient appears to be stated age. She is disheveled, has multiple tattoos on her arms, wearing multiple single rings. Patient appears to have improving hygiene and grooming. Behavior: Patient is sitting in chair, no agitation, appears less depressed Speech: Patient's speech is fluent and non-pressured. [place] and soft tone Mood/Affect: Patient reports their mood is depressed and anxious, affect is congruent and improving mildly Suicidality/Homicidality: Patient denies having any homicidal ideation intent or plan. Patient continues to report suicidal thoughts, no intent or plan. Perceptions: Patient denies any visual hallucinations and denies any auditory hallucinations. Though content/process: There is no evidence of any delusional thought content and thought process is linear and goal-directed. [place]. Fairly somatic Memory and concentration: AOX3, grossly intact for the purposes of this session Judgment and insight: Poor, Improving mildly. IMPRESSIONS: Major depressive disorder, recurrent, severe without psychotic features Cannabis use disorder PLAN: -Patient is admitted under voluntary status to [facility] for stabilization of psychiatric symptoms and safety. Patient has signed adult voluntary form and medication consent and is placed in patient's chart. -Medications: discontinue doxepin and replace with trazodone 150 mg qhs for insomnia, continue effexor xr 75 mg, change to lithobid 450 mg hs for mood stabilization/SI. patient claims that she is having fine tremors, will consider either culprit of effexor or lithium? -Ativan and Haldol PRN for agitation/aggression -NRT - nicotine patch -SW on board for discharge planning. Encourage patient to participate in groups to work on coping skills
[2023-03-12 17:56] LABS: Glucose,Whole Blood 159 mg/dL (70-110)
[2023-03-12] MEDS: LORazepam 1 MG TAB PO PRN (18:42)
[2023-03-12 20:16] LABS: Glucose,Whole Blood 148 mg/dL (70-110)
[2023-03-12] MEDS: CYCLOBENZAPRINE 10 MG TAB PO PRN (20:58)
[2023-03-12] MEDS: INSULIN DETEMIR (LEVEMIR) 100 UNIT/ML SYR SQ SCH (20:58)
[2023-03-12] MEDS ORDERED: traZODone HCL 50 MG TAB PO SCH (21:00)
[2023-03-12] MEDS ORDERED: DOXEPIN 10 MG CAP PO SCH (21:00)
[2023-03-13 08:07] LABS: Glucose,Whole Blood 106 mg/dL (70-110)
[2023-03-13] MEDS: NICOTINE 21MG/24HR PATCH TRANSDERM SCH (08:09)
[2023-03-13] MEDS: lisinopriL 10 MG TAB PO SCH (08:10)
[2023-03-13] MEDS: THIAMINE 100 MG TAB PO SCH (08:10)
[2023-03-13] MEDS: FOLIC ACID 1 MG TAB PO SCH (08:10)
[2023-03-13] MEDS: glipiZIDE 5 MG TAB PO SCH (08:10)
[2023-03-13] MEDS: FAMOTIDINE 20 MG TAB PO SCH ×2 (08:10→20:40)
[2023-03-13] MEDS: VENLAFAXINE HCL ER 75 MG CAP PO SCH (08:10)
[2023-03-13] MEDS: INSULIN ASPART (NovoLOG) 100 UNIT/ML VIAL SQ SCH ×4 (08:11→20:46)
[2023-03-13] MEDS: CYCLOBENZAPRINE 10 MG TAB PO PRN ×2 (08:53→21:57)
[2023-03-13] MEDS: BACITRACIN OINT 1 EACH PACKET TOPICAL SCH ×2 (09:53→20:40)
--- NOTE | 2023-03-13 11:47 | P.PN ---
Progress Note - Text Progress Note Date: 03/13/23 Interval History: Patient was seen today laying in the bed and was agreeable to speak to life underwriter. patient continues to state that she has not been doing well. She claims that it is her sister's birthday today that about 3 years ago. She states that she still feeling depression. Claims that she is concerned about her sleep and not sleeping well. She was agreeable to try melatonin and have her to trazodone increased once again. She continues to be fairly undecided about what medications of an helping her. She was fairly undecided about the Effexor and offered to switch the medications that she feels she is not being helped by it. She was agreeable to try Cymbalta today. States that she is still feeling suicidal and empty inside. Denies any intent or plan at this time. continues to endorse depression and some anxiety. Claims that she is trying to go to some groups, was not able to make the morning group today. States her appetite is fair at this time. At this time patient denies any homical ideations, intent or plan. Patient denies any auditory, visual hallucinations and denies any paranoia or delusions. Patient denies any side effects from the medications and has been compliant with meds. Mental Status Exam: General Appearance: Patient appears to be stated age. She is disheveled, has multiple tattoos on her arms, wearing multiple single rings. Patient appears to have improving hygiene and grooming. Behavior: Patient is sitting in chair, no agitation, appears less depressed Speech: Patient's speech is fluent and non-pressured. [place] and soft tone Mood/Affect: Patient reports their mood is depressed and anxious, affect is congruent and improving mildly Suicidality/Homicidality: Patient denies having any homicidal ideation intent or plan. Patient continues to report suicidal thoughts, no intent or plan. Perceptions: Patient denies any visual hallucinations and denies any auditory hallucinations. Though content/process: There is no evidence of any delusional thought content and thought process is linear and goal-directed. [place]. Fairly somatic Memory and concentration: AOX3, grossly intact for the purposes of this session Judgment and insight: Poor, Improving mildly. IMPRESSIONS: Major depressive disorder, recurrent, severe without psychotic features Cannabis use disorder PLAN: -Patient is admitted under voluntary status to [facility] for stabilization of psychiatric symptoms and safety. Patient has signed adult voluntary form and medication consent and is placed in patient's chart. -Medications: increase trazodone 200 mg qhs for insomnia, discontinue effexor and replace with Cymbalta 30 mg bid for mood/anxiety, lithobid 450 mg hs for mood stabilization/SI -Ativan and Haldol PRN for agitation/aggression -NRT - nicotine patch -SW on board for discharge planning. Encourage patient to participate in groups to work on coping skills. likely discharge tomorrow vs friday if patient improves psychaitrically.
[2023-03-13 12:50] LABS: Glucose,Whole Blood 84 mg/dL (70-110)
[2023-03-13] MEDS: DULoxetine HCL 30 MG CAPSULE.DR PO SCH ×2 (12:50→20:40)
[2023-03-13] MEDS: LORazepam 1 MG TAB PO PRN ×2 (14:43→21:57)
[2023-03-13] MEDS: ACETAMINOPHEN TAB 500 MG TAB PO PRN ×2 (14:43→21:57)
[2023-03-13 17:34] LABS: Glucose,Whole Blood 96 mg/dL (70-110)
[2023-03-13 20:10] LABS: Glucose,Whole Blood 244 mg/dL (70-110)
[2023-03-13] MEDS: traZODone HCL 100 MG TAB PO SCH (20:40)
[2023-03-13] MEDS: MELATONIN 5 MG TABLET PO SCH (20:40)
[2023-03-13] MEDS: LITHIUM CARBONATE ER 450 MG TABLET.ER PO SCH (20:40)
[2023-03-13] MEDS: INSULIN DETEMIR (LEVEMIR) 100 UNIT/ML SYR SQ SCH (20:43)
[2023-03-13] MEDS: ARTIFICIAL TEARS-HYPROMELLOSE DROPS 15 ML BTL BOTH EYES PRN (20:44)
[2023-03-14 07:49] LABS: Glucose,Whole Blood 121 mg/dL (70-110)
[2023-03-14] MEDS: THIAMINE 100 MG TAB PO SCH (07:49)
[2023-03-14] MEDS: glipiZIDE 5 MG TAB PO SCH (07:49)
[2023-03-14] MEDS: DULoxetine HCL 30 MG CAPSULE.DR PO SCH (07:49)
[2023-03-14] MEDS: FAMOTIDINE 20 MG TAB PO SCH ×2 (07:49→22:14)
[2023-03-14] MEDS: NICOTINE 21MG/24HR PATCH TRANSDERM SCH (07:49)
[2023-03-14] MEDS: lisinopriL 10 MG TAB PO SCH (07:49)
[2023-03-14] MEDS: FOLIC ACID 1 MG TAB PO SCH (07:49)
[2023-03-14] MEDS: BACITRACIN OINT 1 EACH PACKET TOPICAL SCH ×2 (07:52→22:16)
[2023-03-14] MEDS: INSULIN ASPART (NovoLOG) 100 UNIT/ML VIAL SQ SCH ×4 (07:52→20:05)
[2023-03-14] MEDS: ACETAMINOPHEN TAB 500 MG TAB PO PRN (10:24)
--- NOTE | 2023-03-14 11:43 | P.PN ---
Progress Note - Text Progress Note Date: 03/14/23 Interval History: Patient was seen today taking part in group and was agreeable to seek the typewriter aligner today in the office. Patient states that she is doing a bit better with the medications today. We spoke about increasing the Cymbalta which is okay with. Continues to states that she is not sleeping throughout the night. He spoke about other strategies to help her with sleep and she will try tonight. She was asking more about her medications. Agreed to take a lithium level will morning. Chest about headache medication. She continues to endorse some hopelessness however states that she has several stressors including legal stressors that she did not want to speak about. continues to endorse depression and some anxiety. Claims that she is trying to go to some groups. States her appetite is fair at this time. At this time patient denies any homical ideations, intent or plan. Patient denies any auditory, visual hallucinations and denies any paranoia or delusions. Patient denies any side effects from the medications and has been compliant with meds. Mental Status Exam: General Appearance: Patient appears to be stated age. She is disheveled, has multiple tattoos on her arms, wearing multiple single rings. Patient appears to have improving hygiene and grooming. Behavior: Patient is sitting in chair, no agitation, appears less depressed Speech: Patient's speech is fluent and non-pressured. [place] and soft tone, improving mildly Mood/Affect: Patient reports their mood is improving mildly, affect is congruent and improving mildly Suicidality/Homicidality: Patient denies having any homicidal ideation intent or plan. Improving suicidal thoughts, no intent or plan. Perceptions: Patient denies any visual hallucinations and denies any auditory hallucinations. Though content/process: There is no evidence of any delusional thought content and thought process is linear and goal-directed. [place] Memory and concentration: AOX3, grossly intact for the purposes of this session Judgment and insight: Poor, Improving mildly. IMPRESSIONS: Major depressive disorder, recurrent, severe without psychotic features Cannabis use disorder PLAN: -Patient is admitted under voluntary status to [facility] for stabilization of psychiatric symptoms and safety. Patient has signed adult voluntary form and medication consent and is placed in patient's chart. -Medications: trazodone 200 mg qhs for insomnia, increase Cymbalta 30 mg daily + 60 mg qhs for mood/anxiety, consider increasing over the weekend, lithobid 450 mg hs for mood stabilization/SI. check lithium level tomorrow am. -Ativan and Haldol PRN for agitation/aggression -NRT - nicotine patch -SW on board for discharge planning. Encourage patient to participate in groups to work on coping skills. likely discharge friday if patient improves psychiatrically
[2023-03-14] MEDS: LORazepam 1 MG TAB PO PRN ×2 (12:55→22:17)
[2023-03-14] MEDS: SUMAtriptan succinate 25 MG TAB PO PRN (17:49)
[2023-03-14] MEDS: ARTIFICIAL TEARS-HYPROMELLOSE DROPS 15 ML BTL BOTH EYES PRN (21:07)
[2023-03-14] MEDS: MELATONIN 5 MG TABLET PO SCH (22:14)
[2023-03-14] MEDS: LITHIUM CARBONATE ER 450 MG TABLET.ER PO SCH (22:14)
[2023-03-14] MEDS: traZODone HCL 100 MG TAB PO SCH (22:14)
[2023-03-14] MEDS: INSULIN DETEMIR (LEVEMIR) 100 UNIT/ML SYR SQ SCH (22:15)
[2023-03-14] MEDS: DULoxetine HCL 60 MG CAPSULE.DR PO SCH (22:15)
[2023-03-14] MEDS: CYCLOBENZAPRINE 10 MG TAB PO PRN (22:17)
[2023-03-15 08:04] LABS: Glucose,Whole Blood 212 mg/dL (70-110)
[2023-03-15] MEDS: glipiZIDE 5 MG TAB PO SCH (08:10)
[2023-03-15] MEDS: LORazepam 1 MG TAB PO PRN ×3 (08:52→22:42)
[2023-03-15] MEDS: NICOTINE 21MG/24HR PATCH TRANSDERM SCH (08:52)
[2023-03-15] MEDS: CYCLOBENZAPRINE 10 MG TAB PO PRN ×2 (08:52→22:42)
[2023-03-15] MEDS: FAMOTIDINE 20 MG TAB PO SCH ×2 (08:53→22:43)
[2023-03-15] MEDS: THIAMINE 100 MG TAB PO SCH (08:53)
[2023-03-15] MEDS: FOLIC ACID 1 MG TAB PO SCH (08:53)
[2023-03-15] MEDS: lisinopriL 10 MG TAB PO SCH (08:53)
[2023-03-15] MEDS: DULoxetine HCL 30 MG CAPSULE.DR PO SCH (08:53)
[2023-03-15] MEDS: INSULIN ASPART (NovoLOG) 100 UNIT/ML VIAL SQ SCH ×4 (08:54→20:38)
[2023-03-15] MEDS: BACITRACIN OINT 1 EACH PACKET TOPICAL SCH ×2 (11:34→22:43)
[2023-03-15 13:01] LABS: Glucose,Whole Blood 108 mg/dL (70-110)
[2023-03-15 17:51] LABS: Glucose,Whole Blood 107 mg/dL (70-110)
[2023-03-15 20:07] LABS: Glucose,Whole Blood 138 mg/dL (70-110)
[2023-03-15] MEDS: INSULIN DETEMIR (LEVEMIR) 100 UNIT/ML SYR SQ SCH (22:31)
[2023-03-15] MEDS: LITHIUM CARBONATE ER 450 MG TABLET.ER PO SCH (22:42)
[2023-03-15] MEDS: DULoxetine HCL 60 MG CAPSULE.DR PO SCH (22:43)
[2023-03-15] MEDS: traZODone HCL 100 MG TAB PO SCH (22:43)
[2023-03-15] MEDS: MELATONIN 5 MG TABLET PO SCH (22:43)
[2023-03-16 08:06] LABS: Glucose,Whole Blood 139 mg/dL (70-110)
[2023-03-16] MEDS: THIAMINE 100 MG TAB PO SCH (08:06)
[2023-03-16] MEDS: FOLIC ACID 1 MG TAB PO SCH (08:06)
[2023-03-16] MEDS: glipiZIDE 5 MG TAB PO SCH (08:06)
[2023-03-16] MEDS: DULoxetine HCL 30 MG CAPSULE.DR PO SCH (08:06)
[2023-03-16] MEDS: lisinopriL 10 MG TAB PO SCH (08:06)
[2023-03-16] MEDS: FAMOTIDINE 20 MG TAB PO SCH ×2 (08:06→21:44)
[2023-03-16] MEDS: NICOTINE 21MG/24HR PATCH TRANSDERM SCH (08:06)
[2023-03-16] MEDS: BACITRACIN OINT 1 EACH PACKET TOPICAL SCH ×2 (08:07→21:44)
[2023-03-16] MEDS: INSULIN ASPART (NovoLOG) 100 UNIT/ML VIAL SQ SCH ×4 (08:07→20:11)
--- NOTE | 2023-03-16 11:13 | P.PN ---
Progress Note - Text Interval history: Patient was seen in her room and was directable and agreeable to speak with ghost writer. States that she was suicidal last night but did not have a plan. Reports suicidality. States that she feels hopeless, and has high anxiety.. At this time patient denies any suicidal or homicidal ideations intent or plan. Denies any Auditory or visual hallucinations. Patient denies any side effects from the medications and has been compliant with meds. Mental status exam: General Appearance: [Patient appears to be older than stated age is alert, directable, and cooperative.] Behavior: [No agitated behavior. Patient is calm and directable] Speech: Patient's speech is fluent and nonpressured. Mood/Affect: Mood is "pretty tired" "hopeless", affect is congruent and constricted. Suicidality/Homicidality: Patient denies having any suicidal or homicidal ideation intent or plan. Perceptions: Patient denies any auditory or visual hallucinations. Though content/process: [There is no evidence of any delusional thought content and thought process is linear and goal-directed.] Memory and concentration: AOX3, grossly intact for the purposes of this session Judgment and insight: improving mildly Assessment/Plan: Continue with current diagnosis. Patient continues to meet criteria for inpatient psychiatric admission for symptom stabilization and safety.[Patient will be maintained on current psychotropic medication regimen.] Monitor for medication compliance and for any psychotropic medication side effects. Will continue to monitor ongoing response to treatment. Encouraged participation in milieu.
--- NOTE | 2023-03-16 11:14 | P.PN ---
Progress Note - Text Interval history: Patient was seen in her room and was directable and agreeable to speak with mortgage underwriter. Has suicidal thoughts last night without a plan. At this time patient denies any suicidal or homicidal ideations intent or plan. Denies any Auditory or visual hallucinations. Patient denies any side effects from the medications and has been compliant with meds. Mental status exam: General Appearance: [Patient appears to be older than stated age is alert, directable, and cooperative.] Behavior: [No agitated behavior. Patient is calm and directable] Speech: Patient's speech is fluent and nonpressured. Mood/Affect: Mood is improving mildly, affect is congruent and constricted. Suicidality/Homicidality: Patient denies having any suicidal or homicidal ideation intent or plan. Perceptions: Patient denies any auditory or visual hallucinations. Though content/process: [There is no evidence of any delusional thought content and thought process is linear and goal-directed.] Memory and concentration: AOX3, grossly intact for the purposes of this session Judgment and insight: improving mildly Assessment/Plan: Continue with current diagnosis. Patient continues to meet criteria for inpatient psychiatric admission for symptom stabilization and safety. [place] level is 0.5. [Patient will be maintained on current psychotropic medication regimen.] Monitor for medication compliance and for any psychotropic medication side effects. Will continue to monitor ongoing response to treatment. Encouraged participation in milieu.
[2023-03-16 12:51] LABS: Glucose,Whole Blood 82 mg/dL (70-110)
[2023-03-16] MEDS: LORazepam 1 MG TAB PO PRN ×2 (12:52→21:45)
[2023-03-16 17:59] LABS: Glucose,Whole Blood 111 mg/dL (70-110)
[2023-03-16 20:10] LABS: Glucose,Whole Blood 194 mg/dL (70-110)
[2023-03-16] MEDS: INSULIN DETEMIR (LEVEMIR) 100 UNIT/ML SYR SQ SCH (20:11)
[2023-03-16] MEDS: LITHIUM CARBONATE ER 450 MG TABLET.ER PO SCH (21:44)
[2023-03-16] MEDS: DULoxetine HCL 60 MG CAPSULE.DR PO SCH (21:44)
[2023-03-16] MEDS: traZODone HCL 100 MG TAB PO SCH (21:44)
[2023-03-16] MEDS: MELATONIN 5 MG TABLET PO SCH (21:44)
[2023-03-16] MEDS: CYCLOBENZAPRINE 10 MG TAB PO PRN (21:45)
[2023-03-17 07:03] VITALS: RESP 16; TEMP 97.8
[2023-03-17 07:51] LABS: Glucose,Whole Blood 131 mg/dL (70-110)
[2023-03-17] MEDS: INSULIN ASPART (NovoLOG) 100 UNIT/ML VIAL SQ SCH ×2 (07:52→12:53)
[2023-03-17] MEDS: NICOTINE 21MG/24HR PATCH TRANSDERM SCH (08:56)
[2023-03-17] MEDS: FAMOTIDINE 20 MG TAB PO SCH (08:57)
[2023-03-17] MEDS: DULoxetine HCL 30 MG CAPSULE.DR PO SCH (08:57)
[2023-03-17] MEDS: FOLIC ACID 1 MG TAB PO SCH (08:57)
[2023-03-17] MEDS: glipiZIDE 5 MG TAB PO SCH (08:57)
[2023-03-17] MEDS: THIAMINE 100 MG TAB PO SCH (08:57)
[2023-03-17] MEDS: BACITRACIN OINT 1 EACH PACKET TOPICAL SCH (08:58)
[2023-03-17] MEDS: lisinopriL 10 MG TAB PO SCH (08:58)
[2023-03-17 09:04] VITALS: BP 119/58; PULSE 86
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
[2023-03-17] MEDS: SUMAtriptan succinate 25 MG TAB PO PRN (10:34)
[2023-03-17] MEDS: CYCLOBENZAPRINE 10 MG TAB PO PRN (10:37)
[2023-03-17 12:53] LABS: Glucose,Whole Blood 73 mg/dL (70-110)
[2023-03-19 03:13] LABS: Glucose,Whole Blood 91 mg/dL (70-110)
[2023-03-19 03:14] LABS: Glucose,Whole Blood 128 mg/dL (70-110)
[2023-03-19 03:14] LABS: Glucose,Whole Blood 131 mg/dL (70-110)
[2023-03-19 03:14] LABS: Glucose,Whole Blood 179 mg/dL (70-110)
== END 2023-03-17 14:13 | disposition home or self-care (01) | DRG 751 ==
LOC: EC 12:56 → 3MHU 19:32
PROVIDERS: ADMIT Psychiatry & Neurology Psychiatry; ATTEND Psychiatry & Neurology Psychiatry
PROC: 3E0234Z Introduction of Serum, Toxoid and Vaccine into Muscle, Percutaneous Approach (ICD-10-PCS; principal; 2023-03-03)
DX: F33.2 Major depressive disorder, recurrent severe without psychotic features (principal); E11.65 Type 2 diabetes mellitus with hyperglycemia; F14.10 Cocaine abuse, uncomplicated; F12.10 Cannabis abuse, uncomplicated; X78.1XXA Intentional self-harm by knife, initial encounter; Z23 Encounter for immunization; Z11.52 Encounter for screening for COVID-19; Z28.310 Unvaccinated for COVID-19; S61.511A Laceration without foreign body of right wrist, initial encounter; S61.512A Laceration without foreign body of left wrist, initial encounter; F41.9 Anxiety disorder, unspecified; F10.90 Alcohol use, unspecified, uncomplicated; I10 Essential (primary) hypertension; G47.00 Insomnia, unspecified; G43.909 Migraine, unspecified, not intractable, without status migrainosus; F17.210 Nicotine dependence, cigarettes, uncomplicated; Z71.6 Tobacco abuse counseling; Z79.84 Long term (current) use of oral hypoglycemic drugs; Z79.899 Other long term (current) drug therapy; Z91.51 Personal history of suicidal behavior; Z59.01 Sheltered homelessness; Z71.51 Drug abuse counseling and surveillance of drug abuser; Z71.41 Alcohol abuse counseling and surveillance of alcoholic; Z88.6 Allergy status to analgesic agent
CPT/HCPCS: 36415; 80053; 80061; 80178; 80306; 82075; 83036; 84443; 85025; 87635; 90471; 90715; 99285

== ENCOUNTER 2024-02-01 11:39 | Emergency (ER) | payer OTHER ==
[2024-02-01 11:49] VITALS: TEMP 98.1
--- NOTE | 2024-02-01 13:00 | ED ---
Fall HPI - General Chief Complaint: Fall Stated Complaint: Fall Time Seen by Provider: 02/01/24 12:57 Source: patient, RN notes reviewed Mode of arrival: ambulatory - History of Present Illness Initial Comments: 58-year-old female presenting with right rib injury 3 days ago. States she tripped and fell in her home, landing on her right ribs. Patient states since the fall, she has had increasing pain in her right ribs, pain is increased with deep inspiration and coughing. Denies chest pain or shortness of breath. Denies hitting her head or losing consciousness with the fall. Denies other injuries. Has history of diabetes, no other medical conditions. Denies blood thinners. - Related Data Home Medications Medication Instructions Recorded Confirmed Folic Acid 1 mg PO DAILY 03/03/23 03/03/23 Thiamine [Vitamin B-1] 100 mg PO DAILY 03/03/23 03/03/23 Previous Rx's Medication Instructions Recorded Acetaminophen Tab [Tylenol] 1,000 mg PO Q8HR PRN tab 03/17/23 Artificial Tears-Hypromellose 2 drops BOTH EYES QID PRN ml 03/17/23 [Artificial Tear Drops] Cyclobenzaprine [Flexeril] 10 mg PO BID PRN 30 Days #60 tab 03/17/23 DULoxetine HCL [Cymbalta] 60 mg PO BID 30 Days #60 cap 03/17/23 Famotidine [Pepcid] 20 mg PO BID 30 Days #60 tab 03/17/23 INSULIN ASPART (NovoLOG) [NovoLOG 0 unit SQ ACHS each 03/17/23 (formulary)] Insulin Detemir (Levemir) [Levemir] 10 unit SQ HS 30 Days #1 each 03/17/23 [place] Carbonate ER [Lithobid] 450 mg PO HS 30 Days #30 tab 03/17/23 Melatonin 10 mg PO HS 30 Days #60 tab 03/17/23 Nicotine 21Mg/24Hr Patch [Habitrol] 1 patch TRANSDERM DAILY 14 Days 03/17/23 #14 patch SUMAtriptan succinate [Imitrex] 25 mg PO DAILY 14 Days #14 tab 03/17/23 glipiZIDE [Glucotrol] 5 mg PO AC-BRKFST 30 Days #30 tab 03/17/23 lisinopriL [Zestril] 10 mg PO DAILY 30 Days #30 tab 03/17/23 traZODone HCL 200 mg PO HS 30 Days #60 tablet 03/17/23 Cyclobenzaprine [Flexeril] 10 mg PO TID PRN #15 tab 02/01/24 Allergies Allergy/AdvReac Type Severity Reaction Status Date / Time naproxen AdvReac Abdominal Verified 03/03/23 13:43 Pain Review of Systems ROS Statement: Those systems with pertinent positive or pertinent negative responses have been documented in the HPI. ROS Other: All systems not noted in ROS Statement are negative. 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 Absent: scleral icterus, conjunctival injection, periorbital swelling Respiratory exam: Present: normal lung sounds bilaterally, other (Right lateral rib tenderness, no overlying skin changes). Absent: respiratory distress, wheezes, rales, rhonchi, stridor Cardiovascular Exam: Present: regular rate, normal rhythm, normal heart sounds. Absent: systolic murmur, diastolic murmur, rubs, gallop, clicks GI/Abdominal exam: Present: soft, normal bowel sounds. Absent: distended, tenderness, guarding, rebound, rigid Extremities exam: Present: normal inspection, full ROM, normal capillary refill. Absent: tenderness, pedal edema, joint swelling, calf tenderness Back exam: Present: normal inspection Neurological exam: Present: alert, oriented X3 Psychiatric exam: Present: normal affect, normal mood Skin exam: Present: warm, dry, intact, normal color. Absent: rash Course Vital Signs 02/01/24 02/01/24 02/01/24 11:46 13:07 16:01 Temperature 98.1 F Pulse Rate 83 70 81 Respiratory 16 20 20 Rate Blood Pressure 191/91 165/79 165/89 O2 Sat by Pulse 98 97 98 Oximetry Medical Decision Making - Medical Decision Making Was pt. sent in by a medical professional or institution (, JOHANNA, [employer] CONSULTANT, urgent care, hospital, or care home...) When possible be specific @ -No Did you speak to anyone other than the patient for history (EMS, parent, family, police, friend...)? What history was obtained from this source @ -No Did you review nursing and triage notes (agree or disagree)? Why? @ -I reviewed and agree with nursing and triage notes Were old charts reviewed (outside hosp., previous admission, EMS record, old EKG, old radiological studies, urgent care reports/EKG's, care home records)? Report findings @ -No old charts were reviewed Differential Diagnosis (chest pain, altered mental status, abdominal pain women, abdominal pain men, vaginal bleeding, weakness, fever, dyspnea, syncope, headache, dizziness, GI bleed, back pain, seizure, CVA, palpatations, mental health, musculoskeletal)? @ -Differential Musculoskeletal Muscular strain, contusion, ligament sprain, fracture, arthritis, septic arthritis, bursitis, cellulitis, muscle spasm, nerve compression, DVT, arterial occlusion, herpes zoster, electrolyte abnormality, tumor.... This is not meant to be in all inclusive list EKG interpreted by me (3pts min.). @ -None X-rays interpreted by me (1pt min.). @ -Right rib x-ray reveals nondisplaced fracture of the right anterolateral fifth and sixth ribs, no acute cardiopulmonary process CT interpreted by me (1pt min.). @ -None done U/S interpreted by me (1pt. min.). @ -None done What testing was considered but not performed or refused? (CT, X-rays, U/S, labs)? Why? @ -None What meds were considered but not given or refused? Why? @ -None Did you discuss the management of the patient with other professionals (professionals i.e. JOHANNA Lopes, [employer] CONSULTANT, lab, RT, psych nurse, high school social studies tutor, program strategist, teacher, mobile patrol officer, case finishing machine adjuster)? Give summary @ -No Was smoking cessation discussed for >3mins.? @ -No Was critical care preformed (if so, how long)? @ -No Were there social determinants of health that impacted care today? How? (Homelessness, low income, unemployed, alcoholism, drug addiction, transportation, low edu. Level, literacy, decrease access to med. care, long term, rehab)? @ -No Was there de-escalation of care discussed even if they declined (Discuss DNR or withdrawal of care, Hospice)? DNR status @ -No What co-morbidities impacted this encounter? (DM, HTN, Smoking, COPD, CAD, Cancer, CVA, ARF, Chemo, Hep., AIDS, mental health diagnosis, sleep apnea, morbid obesity)? @ -None Was patient admitted / discharged? Hospital course, mention meds given and route, prescriptions, significant lab abnormalities, going to OR and other pertinent info. @ -Patient was discharged. Patient was seen and evaluated for right rib pain status post fall 3 days ago. Denies hitting head or losing consciousness. Heart and lungs clear to auscultation bilaterally. X-ray of right ribs reveals a nondisplaced fracture of the right anterolateral fifth and sixth ribs. Patient was given IM Toradol and Flexeril and upon reevaluation, patient expresses an improvement in symptoms. Discussed diagnosis of rib fractures with patient. Supportive care discussed, including incentive spirometer 10 times hourly while awake. Patient is agreeable to plan. Return precautions discussed. Case was discussed with my ED attending Dr. Storm. Patient discharged in stable condition Undiagnosed new problem with uncertain prognosis? @ -No Drug Therapy requiring intensive monitoring for toxicity (Heparin, Nitro, Insulin, Cardizem)? @ -No Were any procedures done? @ -No Diagnosis/symptom? @ -2 fractures of right ribs Acute, or Chronic, or Acute on Chronic? @ -Acute Uncomplicated (without systemic symptoms) or Complicated (systemic symptoms)? @ -Uncomplicated Side effects of treatment? @ -No Exacerbation, Progression, or Severe Exacerbation? @ -No Poses a threat to life or bodily function? How? (Chest pain, USA, CT, pneumonia, PE, COPD, DKA, ARF, appy, cholecystitis, CVA, Diverticulitis, Homicidal, Suicidal, threat to staff... and all critical care pts) @ -Not at this time Disposition Clinical Impression: Fracture of two ribs of right side Disposition: HOME SELF-CARE Condition: Stable Instructions (If sedation given, give patient instructions): Rib Fracture (ED) Additional Instructions: Use incentive spirometer 10 times hourly while awake. Take pain medication as needed. Please return to the Emergency Department if symptoms worsen or any other concerns. Prescriptions: Cyclobenzaprine [Flexeril] 10 mg PO TID PRN #15 tab PRN Reason: Muscle Spasm Is patient prescribed a controlled substance at d/c from ED?: No Referrals: Nonstaff,Physician [Primary Care Provider] - 1-2 days Time of Disposition: 15:45
[2024-02-01 13:07] VITALS: RESP 20
[2024-02-01] MEDS: KETOROLAC 15 MG/ML 1 ML VIAL IM STA (13:13)
[2024-02-01] MEDS: ORPHENADRINE 30 MG/ML 2 ML VIAL IM STA (13:14)
[2024-02-01] MEDS: CYCLOBENZAPRINE 10 MG TAB PO STA (13:18)
--- NOTE | 2024-02-01 14:17 | XR ---
EXAMINATION TYPE: XR ribs RT w pa chest xray, 5 views DATE OF EXAM: 02/01/2024 COMPARISON: 10/11/2014 HISTORY: 58 year-old female right rib injury after fall, pain FINDINGS: Heart upper limits of normal in size. Mild interstitial prominence. Mild hyperinflation. 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 There is a lucency seen along the sixth anterolateral right rib on the oblique view. Cortical irregularity involving the right anterolateral fifth rib. No displaced rib fractures seen. IMPRESSION: 1. Nondisplaced fractures of the right anterolateral fifth and sixth ribs. 2. Possible underlying COPD. Otherwise, no acute cardiopulmonary process.
[2024-02-01 16:02] VITALS: BP 165/89; PULSE 81
--- NOTE | 2024-02-02 15:54 | ED ---
Disposition Clinical Impression: Fracture of two ribs of right side Disposition: HOME SELF-CARE Condition: Stable Instructions (If sedation given, give patient instructions): Rib Fracture (ED) Additional Instructions: Use incentive spirometer 10 times hourly while awake. Take pain medication as needed. Please return to the Emergency Department if symptoms worsen or any other concerns. Prescriptions: Cyclobenzaprine [Flexeril] 10 mg PO TID PRN #15 tab PRN Reason: Muscle Spasm Cyclobenzaprine [Flexeril] 10 mg PO TID PRN #16 tab PRN Reason: Spasms Cyclobenzaprine [Flexeril] 10 mg PO TID PRN #20 tab PRN Reason: Muscle Spasm Is patient prescribed a controlled substance at d/c from ED?: No Referrals: Nonstaff,Physician [Primary Care Provider] - 1-2 days
== END 2024-02-01 16:02 | disposition home or self-care (01) ==
LOC: EC 11:39
DX: S22.41XA Multiple fractures of ribs, right side, initial encounter for closed fracture (principal); F17.200 Nicotine dependence, unspecified, uncomplicated; Z88.6 Allergy status to analgesic agent; W01.0XXA Fall on same level from slipping, tripping and stumbling without subsequent striking against object, initial encounter; Y92.009 Unspecified place in unspecified non-institutional (private) residence as the place of occurrence of the external cause
CPT/HCPCS: 71101; 99283; 96372; J1885